=== PATIENT | male | born 1975 | race African-American/Black ===

== ENCOUNTER 2023-01-28 05:22 | Emergency (ER) | payer MEDICARE, OTHER ==
[~2023-01-28] VITALS: Ht 193 cm; Wt 99.8 kg
--- NOTE | 2023-01-28 05:56 | NUR ---
BIBSELF WITH C/O OF PAIN IN THE BACK, NECK AND R TOE. PT IS A/O X 4, ABLE TO VERBALIZE NEEDS. ON RA, TOLERATING WELL. NO S/SX OF ACUTE RESPI DISTRESS NOTED AT THIS TIME. AWAITING MD ORDERS.
[2023-01-28] MEDS ORDERED: CARI350T PO (06:09)
[2023-01-28] MEDS ORDERED: HYDR-4303 PO (06:09)
[2023-01-28] MEDS ORDERED: AMLO-213 PO (06:09)
[2023-01-28] MEDS ORDERED: KETOROLAC TROMETHAMINE INJ 60 MG/2 ML VIAL IM ONE ×2 (06:14→06:30)
[2023-01-28] MEDS ORDERED: AMLODIPINE BESYLATE 5 MG TABLET ONE (06:14)
[2023-01-28 06:17] VITALS: BP 211/131
[2023-01-28] MEDS ORDERED: AMLODIPINE BESYLATE 5 MG TABLET PO ONE (06:30)
--- NOTE | 2023-01-28 06:34 | NUR ---
Patient discharged to home in stable condition. Written and verbal after care instructions given. Patient verbalizes understanding of instruction. Pt ambulatory with a steady gait
== END 2023-01-28 06:35 | disposition home or self-care (01) ==
LOC: ER 05:30
DX: M54.42 Lumbago with sciatica, left side (principal); I10 Essential (primary) hypertension; Z79.899 Other long term (current) drug therapy
CPT/HCPCS: 99283; 96372; J1885

== ENCOUNTER 2024-02-07 17:34 | Emergency (ER) | payer MEDICARE, OTHER ==
[~2024-02-07] VITALS: Ht 193 cm; Wt 104.3 kg
[~2024-02-07 17:34] MED LIST: AMLO-213 PO; CARI350T PO; HYDR-4303 PO
[2024-02-07 18:48] VITALS: TEMP 98.2
[2024-02-07] MEDS ORDERED: CYCLOBENZAPRINE 10 MG TABLET ONE (19:29)
[2024-02-07] MEDS ORDERED: LIDOCAINE 5% (PATCH) 1 EA PATCH TP ONE (19:29)
[2024-02-07] MEDS ORDERED: KETOROLAC TROMETHAMINE 15 MG/ML VIAL ONE (19:29)
[2024-02-07] MEDS: KETOROLAC TROMETHAMINE 15 MG/ML VIAL IM ONE (19:36)
[2024-02-07] MEDS: CYCLOBENZAPRINE 10 MG TABLET PO ONE (19:36)
[2024-02-07] MEDS: LIDOCAINE 5% (PATCH) 1 EA PATCH TP ONE (19:36)
[2024-02-07] MEDS ORDERED: ACET-2605 PO (20:13)
[2024-02-07] MEDS ORDERED: CYCL5TAB PO (20:13)
[2024-02-07] MEDS ORDERED: IBUP-1955 PO (20:13)
[2024-02-07 20:42] VITALS: BP 122/78; O2SAT 99
== END 2024-02-07 20:43 | disposition home or self-care (01) ==
LOC: ER 17:41
DX: M54.50 Low back pain, unspecified (principal); L72.0 Epidermal cyst; I10 Essential (primary) hypertension; G89.29 Other chronic pain; Z79.899 Other long term (current) drug therapy; Z55.6 Problems related to health literacy
CPT/HCPCS: 99285; 96372; 76882; J1885